=== PATIENT | female | born 1965 | race Caucasian/White ===

== ENCOUNTER 2017-03-11 18:30 | Emergency (ER) | payer BC ==
[2017-03-11 18:42] VITALS: BP 124/72
--- NOTE | 2017-03-11 18:49 | UC ---
Complaint Female HPI - History Of Current Complaint Chief Complaint: UCGU Stated Complaint: URINARY Time Seen by Provider: 03/11/17 18:42 Hx Obtained From: Patient Hx Last Menstrual Period: 2010 ?: No Onset/Duration: Sudden Onset - 4 AM this morning., Still Present - a little better after pyridium Severity Initially: Moderate Severity Currently: Moderate Character: Burning, Cramping Aggravating Factor(s): Urination Alleviating Factor(s): Meds Associated Signs And Symptoms: Negative: Fever, Back Pain, Nausea - Risk Factors Ectopic Risk Factor: Negative Ovarian Torsion Risk Factor: Negative - Allergies/Home Medications Allergies/Adverse Reactions: Allergies Allergy/AdvReac Type Severity Reaction Status Date / Time No Known Allergies Allergy Verified 03/11/17 18:42 PMH/Surg Hx/FS Hx/Imm Hx Cardiovascular History Of: Reports: Cardiac Disorders - palpitations Cancer History Of: Reports: Breast Cancer - Surgical History Surgical History: None Surgery Procedure, Year, and Place: Left Mastectomy 2008, Complete Hysterectomy -09/2011 - Family History Known Family History: Positive: Hypertension, Other - No FMH of UTI's Negative: Cardiac Disease, Diabetes - Social History Occupation: Employed Full-time Lives: With Family Alcohol Use: None Substance Use Type: None Smoking Status (MU): Never Smoked Tobacco Review of Systems Constitutional: Chills Genitourinary: Dysuria, Frequency, Urgency All Other Systems Reviewed And Are Negative: Yes Physical Exam Triage Information Reviewed: Yes Appearance: Well-Appearing, No Pain Distress, Well-Nourished Vital Signs: Initial Vital Signs Temp 98.5 F 03/11/17 18:33 Pulse 102 03/11/17 18:33 Resp 20 03/11/17 18:33 BP 124/72 03/11/17 18:33 Pulse Ox 96 03/11/17 18:33 Vital Signs Reviewed: Yes Eyes: Positive: Conjunctiva Clear Neck exam: Normal Respiratory: Positive: Lungs clear Cardiovascular Exam: Normal Abdomen Description: Positive: No Organomegaly, Soft. Negative: Nontender - suprapubic tenderness Bowel Sounds: Positive: Present Musculoskeletal Exam: Normal Neurological Exam: Normal Psychological Exam: Normal Skin Exam: Normal Complaint Female Dx - Differential Dx/Diagnosis Differential Diagnosis/HQI/PQRI: Appendicitis, Ureteral Stone, Urinary Tract Infection Provider Diagnoses: Acute cystitis Discharge - Discharge Plan Condition: Stable Disposition: HOME Prescriptions: Nitrofurantoin Monohyd Macro [Macrobid] 100 mg PO BID #14 cap Phenazopyridine 200 mg (NF) [Pyridium 200 MG tab] 200 mg PO TID PRN #6 tab PRN Reason: Spasms - Bladder Patient Education Materials: Urinary Tract Infection in Women (ED), Nitrofurantoin Combination (By mouth), Phenazopyridine (By mouth)
[2017-03-11] MEDS ORDERED: Nitrofurantoin Macrocrystals* 50 MG CAP PO ONE (19:05)
== END 2017-03-11 19:16 | disposition home or self-care (01) ==
LOC: UCCORT 18:30
DX: N30.00 Acute cystitis without hematuria (principal); R00.2 Palpitations; Z85.3 Personal history of malignant neoplasm of breast; Z90.12 Acquired absence of left breast and nipple; Z90.710 Acquired absence of both cervix and uterus
CPT/HCPCS: 87077; 87086; 87186; 99212; A9270-GY; G0463

== ENCOUNTER 2019-07-04 16:33 | Emergency (ER) | payer BC ==
[2019-07-04 17:09] VITALS: BP 136/80
[2019-07-04] MEDS ORDERED: Tetracaine 0.5% OPTH.SOL 4 ML* 1 DROP BTL RIGHT EYE ONE (17:43)
[2019-07-04] MEDS ORDERED: Fluorescein Sodium TOPICAL* 1 MG TEST STRIP OPHTHALMIC ONE (17:43)
--- NOTE | 2019-07-04 18:18 | UC ---
Eye Complaint HPI - HPI Summary HPI Summary: 53-year-old woman comes in with a chief complaint of redness of the right eye. Earlier today she noticed there appeared to be some bleeding in the right I lateral lower quadrant. The area is red. She does feel sensation there but denies any pain or loss of vision. She wears glasses but does not wear contacts. No known trauma. She is not on blood thinners. - History of Current Complaint Chief Complaint: UCEye Stated Complaint: RT EYE PAIN Time Seen by Provider: 07/04/19 17:39 Hx Last Menstrual Period: 2010 Pain Intensity: 0 - Allergies/Home Medications Allergies/Adverse Reactions: Allergies Allergy/AdvReac Type Severity Reaction Status Date / Time No Known Allergies Allergy Verified 07/04/19 17:04 Home Medications: Home Medications Metoprolol Tartrate TAB* [Lopressor TAB*] 25 mg PO DAILY 07/04/19 [History Confirmed 07/04/19] PMH/Surg Hx/FS Hx/Imm Hx Previously Healthy: Yes Cardiovascular History: Hypertension - Surgical History Surgical History: None Surgery Procedure, Year, and Place: Left Mastectomy 2008, Complete Hysterectomy -09/2011 - Family History Known Family History: Positive: Hypertension, Other - No FMH of UTI's Negative: Cardiac Disease, Diabetes - Social History Alcohol Use: None Substance Use Type: None Smoking Status (MU): Never Smoked Tobacco Review of Systems All Other Systems Reviewed And Are Negative: Yes Constitutional: Positive: Negative Skin: Positive: Negative Eyes: Positive: Eye Redness, Other - SEE HPI ENT: Positive: Negative Respiratory: Positive: Negative Cardiovascular: Positive: Negative Gastrointestinal: Positive: Negative Motor: Positive: Negative Neurovascular: Positive: Negative Musculoskeletal: Positive: Negative Neurological: Positive: Negative Psychological: Positive: Negative Is Patient Immunocompromised?: No Physical Exam Triage Information Reviewed: Yes Appearance: Well-Appearing, No Pain Distress, Well-Nourished Vital Signs: Initial Vital Signs Temp 99 F 07/04/19 16:59 Pulse 100 07/04/19 16:59 Resp 16 07/04/19 16:59 BP 136/80 07/04/19 16:59 Pulse Ox 100 07/04/19 16:59 Vital Signs Reviewed: Yes Eyes: Positive: Other: - PERRLA EOMI. There is a subcutaneous conjunctival hemorrhage in the right eye in the lower lateral quadrant. It does not cross over to the iris. There is no hyphema. On floor seen stain exam I do not see any evidence of fluorescein uptake. No foreign body seen. Neck: Positive: Supple Respiratory: Positive: No respiratory distress Musculoskeletal: Positive: Strength Intact, ROM Intact Neurological: Positive: Alert Psychological: Positive: Age Appropriate Behavior Skin Exam: Normal Eye Complaint Course/Dx - Course Course Of Treatment: We discussed subconjunctival hemorrhage. 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 Reevaluate sooner if worse such as vision loss or pain or any other questions or concerns. - Differential Dx/Diagnosis Provider Diagnosis: Subconjunctival hemorrhage of right eye Discharge ED - Sign-Out/Discharge Documenting (check all that apply): Patient Departure All imaging exams completed and their final reports reviewed: No Studies - Discharge Plan Condition: Stable Disposition: HOME Prescriptions: Tobramycin 0.3% OPHTH.FROY* 1 drop RIGHT EYE Q4H #1 btl Patient Education Materials: Subconjunctival Hemorrhage (ED) Referrals: Magda Carrasco PA [Primary Care Provider] - Nadeem Ayala MD [Medical Doctor] - Mary Lao MD [Medical Doctor] - Additional Instructions: Follow-up with ophthalmology if not completely improved. Reevaluate sooner if worse; pain, loss of vision or any questions or concerns. - Billing Disposition and Condition Condition: STABLE Disposition: Home
== END 2019-07-04 18:30 | disposition home or self-care (01) ==
LOC: UCCORT 16:33
DX: H11.31 Conjunctival hemorrhage, right eye (principal); I10 Essential (primary) hypertension
CPT/HCPCS: 99212; A9270-GY; G0463